=== PATIENT | male | born 1990 | race Caucasian/White ===

== ENCOUNTER 2017-11-01 15:27 | Emergency (ER) | payer OTHER ==
[~2017-11-01] VITALS: Ht 190.5 cm; Wt 124.7 kg
--- NOTE | 2017-11-01 16:04 | RAD ---
Three-view study of the left knee Clinical indications: Left knee pain. No known injury. Findings: No acute fracture or dislocation or osteolytic process is seen. No significant arthritic change is evident. IMPRESSION: No acute fracture. Possible loose body within the anterior tibiofemoral joint compartment as seen in the lateral view only.
[2017-11-01] MEDS ORDERED: IBUP800T19 PO (16:49)
--- NOTE | 2017-11-01 16:49 | PHYS DOC ---
Past History Past Medical History: No Pertinent History, Hypertension Past Surgical History: Other Alcohol Use: None Drug Use: None Adult General Chief Complaint Chief Complaint: KNEE INJURY HPI HPI 27-year-old male patient states he was walking at work and felt a pop in his left knee at 10:30 today and since then feeling pain in his knee that getting worse with movement and activity. Patient denies focal neurodeficit and history of the same problem. Patient rated his pain 9 during rest and 10 with walking. Review of Systems Review of Systems Constitutional: Denies fever or chills [] Eyes: Denies change in visual acuity, redness, or eye pain [] HENT: Denies nasal congestion or sore throat [] Respiratory: Denies cough or shortness of breath [] Cardiovascular: No additional information not addressed in HPI [] GI: Denies abdominal pain, nausea, vomiting, bloody stools or diarrhea [] : Denies dysuria or hematuria [] Musculoskeletal: Denies back pain, reports joint pain Integument: Denies rash or skin lesions [] Neurologic: Denies headache, focal weakness or sensory changes [] Endocrine: Denies polyuria or polydipsia [] All other systems were reviewed and found to be within normal limits, except as documented in this note. Allergies Allergies Allergies Coded Allergies Type Severity Reaction Last Updated Verified No Known Drug Allergies 11/01/17 No Physical Exam Physical Exam Constitutional: Well developed, well nourished, mild distress, non-toxic appearance. [] HENT: Normocephalic, atraumatic, bilateral external ears normal, oropharynx moist, no oral exudates, nose normal. [] Eyes: PERRLA, EOMI, conjunctiva normal, no discharge. [] Neck: Normal range of motion, no tenderness, supple, no stridor. [] Cardiovascular:Heart rate regular rhythm, no murmur [] Lungs & Thorax: Bilateral breath sounds clear to auscultation [] Extremities: No tenderness, no cyanosis, no clubbing, decrease of range of motion of left knee because of pain, no edema. [] Neurologic: Alert and oriented X 3, normal motor function, normal sensory function, no focal deficits noted. [] Psychologic: Affect normal, judgement normal, mood normal. [] Current Patient Data Vital Signs Vital Signs Date Time Temp Pulse Resp B/P (MAP) Pulse Ox O2 Delivery O2 Flow Rate FiO2 11/01/17 15:27 99.1 74 18 97 Room Air EKG EKG [] Radiology/Procedures Radiology/Procedures [] IMAGING REPORT Signed PATIENT: MI PENG ACCOUNT: [id number] : 1990 LOCATION: ER AGE: 27 SEX: M EXAM STATUS: REG ER ORD. PHYSICIAN: YENIFER YANEZ MD REASON: pain PROCEDURE: KNEE LEFT 3V Three-view study of the left knee Clinical indications: Left knee pain. No known injury. Findings: No acute fracture or dislocation or osteolytic process is seen. No significant arthritic change is evident. IMPRESSION: No acute fracture. Possible loose body within the anterior tibiofemoral joint compartment as seen in the lateral view only. DICTATED AND SIGNED BY: GIN BLAKE MD DATE: 11/01/171599 CC: ASHLEY PATEL; YENIFER YANEZ MD Course & Med Decision Making Course & Med Decision Making Pertinent Imaging studies reviewed. (See chart for details) Evaluation of patient in ER showed 27-year-old male patient with complaining of popping his left knee and pain since this morning. Patient had unremarkable physical exam except for limited range of motion. X-ray did not show acute finding and showed questionable particle in his knee in lateral view. Baudilio wrap applied and patient instructed to apply ice and follow with his primary care physician for possible further evaluate evaluation. I've spoken with the patient and/or caregivers. I've explained the patient's condition, diagnosis and treatment plan based on information available to me at this time. I've answered the patient's and/or caregivers questions and addressed any concerns. The patient and/or caregivers have a good understanding the patient's diagnosis, condition and treatment plan as can be expected at this point. Vital signs have been stabilized. The patient's condition is stable for discharge from the emergency department. The patient will pursue further outpatient evaluation with her primary care provider or other designated consulting physician as outlined in the discharge instructions. Patient and/or caregivers are agreeable to this plan of care and follow-up instructions have been explained in detail. The patient and/or caregivers have received these instructions in written format and expressed understanding of these discharge instructions. The patient and her caregivers are aware that if any significant change in condition or worsening of symptoms should prompt him to immediately return to this of the closest emergency department. If an emergent department is not readily available I would encourage him to call 911. [] Dragon Disclaimer Dragon Disclaimer This electronic medical record was generated, in whole or in part, using a voice recognition dictation system. Departure Departure: Impression: Primary Impression: Left knee sprain Disposition: HOME, SELF-CARE (At 1700) Condition: IMPROVED Referrals: ASHLEY PATEL (PCP) Patient Instructions: Knee Sprain Additional Instructions: Apply ice on the affected area Follow-up with your primary care physician in 3-5 days Return to ER if not getting better Scripts Ibuprofen (IBUPROFEN) 800 Mg Tablet 1 TAB PO TID, #30 TAB Prov: YENIFER YANEZ MD 11/01/17 YENIFER YANEZ MD Nov 01, 2017 16:49
[2017-11-01 16:50] VITALS: BP 167/98
[2017-11-01] MEDS ORDERED: IBUPROFEN 400 MG TABLET. PO ONE (17:15)
== END 2017-11-01 16:50 | disposition home or self-care (01) ==
LOC: ER 15:27
DX: S83.92XA Sprain of unspecified site of left knee, initial encounter (principal); I10 Essential (primary) hypertension; X58.XXXA Exposure to other specified factors, initial encounter; Y93.01 Activity, walking, marching and hiking; Y99.8 Other external cause status; Y92.89 Other specified places as the place of occurrence of the external cause
CPT/HCPCS: 73562; 99284